=== PATIENT | female | born 1975 | race Two or more races ===

== ENCOUNTER 2021-07-04 08:47 | Outpatient (CLI) | payer OTHER | END 2021-07-04 08:54 | disposition home or self-care (01) | LOC: RX STUDY 08:47 | PROVIDERS: ATTEND Internal Medicine Gastroenterology | DX: M25.551 Pain in right hip (principal); M25.552 Pain in left hip ==

== ENCOUNTER 2021-09-18 06:50 | Day surgery (SDC) | payer OTHER | END 2021-09-18 15:25 | disposition home or self-care (01) | LOC: AMB-ENDOS 06:50 | PROVIDERS: ATTEND Colon & Rectal Surgery | DX: K63.5 Polyp of colon (principal); Z20.822 Contact with and (suspected) exposure to COVID-19 ==